=== PATIENT | female | born 1980 | race Caucasian/White ===

== ENCOUNTER 2017-07-16 14:15 | Observation (INO) | payer OTHER ==
[~2017-07-16] VITALS: Ht 160 cm; Wt 85.7 kg
[~2017-07-16 14:15] MED LIST: IRON65TA3 PO; PREN-385 PO
== END 2017-07-16 20:58 | disposition home or self-care (01) ==
LOC: MLD 14:15
PROVIDERS: ADMIT Obstetrics & Gynecology; ATTEND Obstetrics & Gynecology
DX: O36.8130 Decreased fetal movements, third trimester, not applicable or unspecified (principal); O26.893 Other specified pregnancy related conditions, third trimester; R51 Headache; Z3A.35 35 weeks gestation of pregnancy
CPT/HCPCS: 59025; 76805; 76819; G0378; Q0092

== ENCOUNTER 2017-07-18 10:30 | Observation (INO) | payer OTHER ==
[~2017-07-18] VITALS: Ht 160 cm; Wt 85.7 kg
[2017-07-18 11:00] VITALS: BP 110/64
== END 2017-07-18 13:45 | disposition home or self-care (01) ==
LOC: MLD 10:30
PROVIDERS: ADMIT Obstetrics & Gynecology; ATTEND Obstetrics & Gynecology
DX: O36.8130 Decreased fetal movements, third trimester, not applicable or unspecified (principal); O10.913 Unspecified pre-existing hypertension complicating pregnancy, third trimester; Z3A.00 Weeks of gestation of pregnancy not specified
CPT/HCPCS: 76819; G0378; Q0092

== ENCOUNTER 2017-07-21 08:35 | Observation (INO) | payer OTHER ==
[~2017-07-21] VITALS: Ht 160 cm; Wt 85.7 kg
[2017-07-21 09:43] VITALS: BP 115/72
--- NOTE | 2017-07-21 12:01 | NUR ---
PATIENT HAS BEEN SCREENED AND CATEGORIZED LOW NUTRITION RISK. PATIENT WILL BE SEEN WITHIN 7 DAYS OF ADMISSION. 07/28/17 ALEJANDRO HENRY; KELVIN, RD
== END 2017-07-21 11:40 | disposition home or self-care (01) ==
LOC: MLD 08:35
PROVIDERS: ADMIT Obstetrics & Gynecology; ATTEND Obstetrics & Gynecology
DX: O36.8190 Decreased fetal movements, unspecified trimester, not applicable or unspecified (principal); Z3A.00 Weeks of gestation of pregnancy not specified
CPT/HCPCS: 59025; 76819; 81000; G0378; Q0092